=== PATIENT | female | born 1960 | race Caucasian/White ===

== ENCOUNTER → 2017-07-24 | Outpatient (CLI) | payer OTHER ==
[~2017-07-24] MED LIST: ALBU8.5H8 INH; CETI10CA PO; FLUT9.9S NS; GLIP10TA13 PO; INSU100I13 SC; LEVO25TA4 PO; METF10002 PO; PRAV20TA2 PO
[2017-07-24 08:08] LABS: HEMATOCRIT 43.4 % (34.6-47.8); HEMOGLOBIN 14.6 g/dL (11.7-16.4); WHITE BLOOD COUNT 9.4 x10^3/uL (3.4-10)
[2017-07-24 08:15] LABS: ASPARTATE AMINO TRANSFERASE 46 U/L (15-37); BLOOD UREA NITROGEN 8 mg/dL (7-18)
[2017-07-25 09:07] LABS: CREATININE URINE 165.5 mg/dL (Not Estab.)
== END ==
LOC: LAB 07:36
PROVIDERS: ATTEND Family Medicine
DX: I10 Essential (primary) hypertension (principal); E78.2 Mixed hyperlipidemia; E11.9 Type 2 diabetes mellitus without complications; E03.9 Hypothyroidism, unspecified
CPT/HCPCS: 36415; 80053; 80061; 81001; 82043; 82570; 83036; 84443; 85025

== ENCOUNTER → 2019-01-01 | Outpatient (CLI) | payer MEDICAID | END | disposition home or self-care (01) | LOC: CFH 12:59 | PROVIDERS: ATTEND Family Medicine | DX: M51.36 Other intervertebral disc degeneration, lumbar region (principal) | CPT/HCPCS: 72100 ==

== ENCOUNTER 2019-01-14 12:18 | Outpatient (CLI) | payer MEDICAID | END 2019-01-14 23:59 | disposition home or self-care (01) | LOC: CFH 12:18 | PROVIDERS: ATTEND Family Medicine | DX: Z12.31 Encounter for screening mammogram for malignant neoplasm of breast (principal); M85.88 Other specified disorders of bone density and structure, other site | CPT/HCPCS: 77080; 77067 ==